=== PATIENT | male | born 1995 | race Caucasian/White ===

== ENCOUNTER 2017-01-12 11:28 | Emergency (ER) | payer OTHER ==
--- NOTE | 2017-01-12 12:28 | ED Physician Documentation ---
PD HPI LOWER EXT INJURY - Stated complaint Stated Complaint: BACK PX - Chief complaint Chief Complaint: Back Pain - History obtained from History obtained from: Patient - History of Present Illness Type of injury: Twist PD PAST MEDICAL HISTORY - Past Medical History Cardiovascular: Other Psych: ADD/ADHD - Past Surgical History Past Surgical History: Yes Ortho: Other HEENT: Tonsil/Adenoidectomy - Present Medications Home Medications: Ambulatory Orders Medication Instructions Recorded Confirmed Lisdexamfetamine Dimesylate 60 mg PO DAILY 05/15/16 01/12/17 [Vyvanse] - Allergies Allergies/Adverse Reactions: Allergies Allergy/AdvReac Type Severity Reaction Status Date / Time No Known Drug Allergies Allergy Verified 01/12/17 11:37 - Social History Does the pt smoke?: No Smoking Status: Never smoker Does the pt drink ETOH?: No Does the pt have substance abuse?: No - Immunizations Immunizations are current?: Yes - POLST Patient has POLST: No Results - Vitals Vitals: Vital Signs - 24 hr 01/12/17 11:36 Temperature 36.6 C Heart Rate 54 L Respiratory 14 Rate Blood Pressure 135/75 H O2 Saturation 100 Oxygen O2 Source Room air
--- NOTE | 2017-01-12 12:38 | ED Physician Documentation ---
PD HPI BACK INJURY - Stated complaint Stated Complaint: BACK PX - History obtained from History obtained from: Patient - History of Present Illness Location: Lower Type of injury: Twist Where injury occurred: [place] Timing - onset: Yesterday Timing - duration: Days (1) Timing - details: Gradual onset Pain level max: 8 Pain level now: 7 Quality: Pain, Spasm Improved by: Rest Worsened by: Moving, Palpating Associated symptoms: No: Fever, Weakness, Numbness, Incontinent of urine, Unable to urinate, Hematuria, Incontinent of stool Contributing factors: No: Anticoagulated, Prior back surgery - Additional information Additional information: No IVDU. No back problems in the past. Review of Systems Constitutional: denies: Fever, Chills GI: denies: Vomiting Neurologic: denies: Focal weakness, Numbness, Headache PD PAST MEDICAL HISTORY - Past Medical History Past Medical History: Yes Cardiovascular: Other Psych: ADD/ADHD - Past Surgical History Past Surgical History: Yes Ortho: Other HEENT: Tonsil/Adenoidectomy - Present Medications Home Medications: Ambulatory Orders Medication Instructions Recorded Confirmed Lisdexamfetamine Dimesylate 60 mg PO DAILY 05/15/01/12/17 [Vyvanse] Cyclobenzaprine [Flexeril] 10 mg PO TID PRN #20 tablet 01/12/17 Ibuprofen [Motrin] 800 mg PO Q8H PRN #30 tablet 01/12/17 - Allergies Allergies/Adverse Reactions: Allergies Allergy/AdvReac Type Severity Reaction Status Date / Time No Known Drug Allergies Allergy Verified 01/12/17 11:37 - Living Situation Living Arrangement: reports: At home - Social History Does the pt smoke?: No Smoking Status: Never smoker Does the pt drink ETOH?: No Does the pt have substance abuse?: Yes Substance Use and Type: Marijuana - Family History Family history: reports: Non contributory - Immunizations Immunizations are current?: Yes - POLST Patient has POLST: No PD ED PE NORMAL - Vitals Vital signs reviewed: Yes - General General: Alert and oriented X 3, No acute distress, Well developed/nourished - HEENT HEENT: PERRL, Moist mucous membranes - Neck Neck: Supple, no meningeal sign, No bony TTP - Cardiac Cardiac: RRR, No murmur - Respiratory Respiratory: Clear bilaterally - Abdomen Abdomen: Normal bowel sounds, Soft, Non tender, Non distended - Back Back: No spinal TTP (no tenderness to palpation or percussion.), Other ( paraspinal tenderness B L4-5. +spasm. ) - Derm Derm: Warm and dry - Extremities Extremities: Normal ROM s pain, Other (normal bilateral lower extremity patellar and ankle jerk reflexes. Normal great toe extension bilaterally) - Neuro Neuro: Alert and oriented X 3, No motor deficit, No sensory deficit - Psych Psych: Normal mood, Normal affect Results - Vitals Vitals: Vital Signs - 24 hr 01/12/17 01/12/17 11:36 13:17 Temperature 36.6 C 36.4 C L Heart Rate 54 L 52 L Respiratory 14 18 Rate Blood Pressure 135/75 H 122/80 O2 Saturation 100 100 Oxygen O2 Source Room air PD MEDICAL DECISION MAKING - ED course Complexity details: considered differential (no cauda equina, no spinal epidural abscess, no fracture, no aortic dissection or evidence of aneursym rupture), d/w patient, d/w family ED course: Patient is a 21-year-old male who presents to the emergency department With low back pain after twisting yesterday. Appears to have muscle spasm. No evidence of fracture, cauda equina, epidural abscess. No neurological deficits. No sciatica. Given Toradol and Flexeril here. Will place on Motrin and Flexeril for home. Patient counseled regarding signs and symptoms for which I believe and urgent re-evaluation would be necessary. Patient with good understanding of and agreement to plan and is comfortable going home at this time This document was made in part using voice recognition software. While efforts are made to proofread this document, sound alike and grammatical errors may occur. Departure - Departure Disposition: 01 Home, Self Care Clinical Impression: Back strain Qualifiers: Encounter type: initial encounter Qualified Code(s): S39.012A - Strain of muscle, fascia and tendon of lower back, initial encounter Condition: Good Instructions: ED Low Back Pain Injury Follow-Up: your,doctor in 1 week [Other] Prescriptions: Cyclobenzaprine [Flexeril] 10 mg PO TID PRN #20 tablet PRN Reason: Spasms Ibuprofen [Motrin] 800 mg PO Q8H PRN #30 tablet PRN Reason: PAIN &/OR FEVER Comments: Return if you worsen. This should improve over the next few days. Forms: Activity restrictions Discharge Date/Time: 01/12/17 13:17
[2017-01-12] MEDS ORDERED: CYCLOBENZAPRINE 10 MG TABLET PO STA (12:41)
[2017-01-12] MEDS ORDERED: KETOROLAC 60 MG/2 ML VIAL IM STA (12:41)
[2017-01-12] MEDS ORDERED: KETOROLAC 60 MG/2 ML VIAL ONE (12:49)
[2017-01-12] MEDS ORDERED: CYCLOBENZAPRINE 10 MG TABLET PO ONE (12:49)
[2017-01-12 13:17] VITALS: BP 122/80
== END 2017-01-12 13:17 | disposition home or self-care (01) ==
LOC: ED 11:28
DX: S39.012A Strain of muscle, fascia and tendon of lower back, initial encounter (principal); X50.0XXA Overexertion from strenuous movement or load, initial encounter
CPT/HCPCS: 96372; 99283; A9270

== ENCOUNTER 2017-11-19 15:51 | Emergency (ER) | payer OTHER ==
[2017-11-19 16:00] VITALS: BP 143/97
--- NOTE | 2017-11-19 16:37 | XRAY Report ---
Procedure Date: 11/19/2017 Accession Number: [id number] / [id number] Procedure: XR - Foot 3 View LT CPT Code: FULL RESULT: EXAM: LEFT FOOT RADIOGRAPHY. EXAM DATE: 11/19/2017 04:16 PM. CLINICAL HISTORY: Status post foot surgery 09/18, rolled ankle, pain and swelling. COMPARISON: None. TECHNIQUE: 3 views. FINDINGS: 2 screws placed across the first tarsometatarsal joint for fusion. Bunionectomy at the medial aspect of the first metatarsal head. No acute bone findings are seen. Small bone island at the first distal phalanx. No evidence for acute fracture. No subluxation. Mild diffuse dorsal foot soft tissue swelling. IMPRESSION: 1. Mild diffuse dorsal foot soft tissue swelling. Postsurgical changes as above. No acute bone findings are seen. RADIA
--- NOTE | 2017-11-19 16:39 | XRAY Report ---
Procedure Date: 11/19/2017 Accession Number: [id number] / [id number] Procedure: XR - Ankle 3 View LT CPT Code: FULL RESULT: EXAM: LEFT ANKLE RADIOGRAPHY. EXAM DATE: 11/19/2017 04:16 PM. CLINICAL HISTORY: Rolled ankle, status post foot surgery 09/18. COMPARISON: None. TECHNIQUE: 3 views. FINDINGS: Ankle joint effusion. No subluxation. Postsurgical change with lucency seen at the distal tibia. Small lateral malleolus bone spur. No acute bone findings are seen. Mild diffuse ankle soft tissue swelling. IMPRESSION: Ankle joint effusion. Mild diffuse ankle soft tissue swelling. No acute bone findings are seen. See above. RADIA
--- NOTE | 2017-11-19 16:47 | ED Physician Documentation ---
PD HPI LOWER EXT INJURY - Stated complaint Stated Complaint: POST OP LT FOOT INJ - Chief complaint Chief Complaint: Ext Problem - History obtained from History obtained from: Patient - History of Present Illness PD HPI LOW EXT INJURY LOCATION: Left, Ankle, Foot Type of injury: Twist (inversion and had pain at foot and ankle. Had bunion surgery 2 months ago and was having regular activity at this point. He is concerned about disruption of the surgical area and screws as it hurts a lot.) Worsened by: Moving Associated symptoms: Swelling. No: Weakness, Numbness Recently seen: Surgery (bunionectomy and screws 2 months ago. Healed well and was at normal use.) Review of Systems Skin: denies: Abrasion (s), Laceration (s) Musculoskeletal: reports: Extremity pain PD PAST MEDICAL HISTORY - Past Medical History Cardiovascular: Other Psych: ADD/ADHD - Past Surgical History Past Surgical History: Yes Ortho: Other HEENT: Tonsil/Adenoidectomy - Present Medications Home Medications: Ambulatory Orders Medication Instructions Recorded Confirmed Desvenlafaxine Succinate [Pristiq 100 mg PO 11/19/17 ER] HYDROcod/ACETAM 5/325 [[place] 5/325] 1 tab PO Q6H PRN #15 tablet 11/19/17 Naproxen [Naprosyn] 500 mg PO BID #20 tablet 11/19/17 clonazePAM [Clonazepam] 0.5 mg PO 11/19/17 - Allergies Allergies/Adverse Reactions: Allergies Allergy/AdvReac Type Severity Reaction Status Date / Time No Known Drug Allergies Allergy Verified 11/19/17 16:00 - Social History Does the pt smoke?: No Smoking Status: Never smoker Does the pt drink ETOH?: No Does the pt have substance abuse?: Yes - Immunizations Immunizations are current?: Yes - POLST Patient has POLST: No PD ED PE NORMAL - Vitals Vital signs reviewed: Yes - General General: Alert and oriented X 3, No acute distress, Well developed/nourished - Derm Derm: Normal color, Warm and dry - Extremities Extremities: Other (left foot and ankle with some tendernss mid foot to lateral. Helaed scars without signs of infection. Ankle with some tenderness ATFL area. No malleolar tenderness. ) - Neuro Neuro: No motor deficit, No sensory deficit Results - Vitals Vitals: Oxygen O2 Source Room air - Rads (name of study) left foot Radiology: Prelim report reviewed (post op changes and screws without apparent new injury. ) PD MEDICAL DECISION MAKING - ED course Complexity details: reviewed results (no signs of disruption of surgical changes ), considered differential, d/w patient - Sepsis Event Vital Signs: Oxygen O2 Source Room air Departure - Departure Disposition: 01 Home, Self Care Clinical Impression: History of foot operation Ankle sprain Qualifiers: Encounter type: initial encounter Involved ligament of ankle: unspecified ligament Laterality: left Qualified Code(s): S93.402A - Sprain of unspecified ligament of left ankle, initial encounter Foot sprain Qualifiers: Encounter type: initial encounter Laterality: left Qualified Code(s): S93.602A - Unspecified sprain of left foot, initial encounter Condition: Stable Record reviewed to determine appropriate education?: Yes Instructions: ED Sprain Ankle Prescriptions: HYDROcod/ACETAM 5/325 [[place] 5/325] 1 tab PO Q6H PRN #15 tablet PRN Reason: Pain Naproxen [Naprosyn] 500 mg PO BID #20 tablet Comments: The previous surgery does not appear disrupted. Presume a sprain of the foot and ankle. There may be some inflammation around the previous surgery area. Use your postop shoe and crutches that you had previously. Naproxen or ibuprofen 2-3 times daily. Activity as able. Add Tylenol or hydrocodone as needed for pain. Follow-up with your foot surgeon if not better over the next week. Discharge Date/Time: 11/19/17 17:24
== END 2017-11-19 17:24 | disposition home or self-care (01) ==
LOC: ED 15:51
DX: S93.402A Sprain of unspecified ligament of left ankle, initial encounter (principal); X50.1XXA Overexertion from prolonged static or awkward postures, initial encounter; Y93.9 Activity, unspecified; Y92.89 Other specified places as the place of occurrence of the external cause; Z98.890 Other specified postprocedural states
CPT/HCPCS: 99283

== ENCOUNTER 2018-10-27 14:01 | Emergency (ER) | payer OTHER ==
[2018-10-27 14:31] LABS: BASOPHILS # (AUTO) 0.1 10^3/uL (0.0-0.1); BASOPHILS % (AUTO) 0.8 %; EOSINOPHILS # (AUTO) 0.2 10^3/uL (0.0-0.7); EOSINOPHILS % (AUTO) 3.6 %; HGB - HEMOGLOBIN 15.6 g/dL (14.0-18.0); LYMPHOCYTES # (AUTO) 1.7 10^3/uL (1.5-3.5); LYMPHOCYTES % (AUTO) 25.9 %; MEAN CORPUSCULAR HEMOGLOBIN 30.2 pg (27.0-31.0); MEAN CORPUSCULAR HGB CONC 34.5 g/dL (32.0-36.0); MEAN CORPUSCULAR VOLUME 87.6 fL (80.0-94.0); MEAN PLATELET VOLUME 8.1 fL (7.4-11.4); MONOCYTES # (AUTO) 0.7 10^3/uL (0.0-1.0); MONOCYTES % (AUTO) 11.5 %; NEUTROPHILS # (AUTO) 3.7 10^3/uL (1.5-6.6); NEUTROPHILS % (AUTO) 58.2 %; PLT - PLATELET COUNT 260 10^3/uL (130-450); RED BLOOD COUNT 5.16 10^6/uL (4.70-6.10); RED CELL DISTRIBUTION WIDTH 12.6 % (12.0-15.0); WHITE BLOOD COUNT 6.4 x10^3/uL (4.8-10.8)
--- NOTE | 2018-10-27 14:46 | XRAY Report ---
Reason: Chest Pain Procedure Date: 10/27/2018 Accession Number: [id number] / [id number] Procedure: XR - Chest 1 View X-Ray CPT Code: 51055 FULL RESULT: EXAM: CHEST RADIOGRAPHY EXAM DATE: 10/27/2018 02:32 PM. CLINICAL HISTORY: Chest Pain. COMPARISON: CHEST 2 VIEW PA/LAT 05/16/2016 5:03 AM. TECHNIQUE: 1 view. FINDINGS: Lungs/Pleura: No focal opacities evident. No pleural effusion. No pneumothorax. Mediastinum: Within exam limitations, the cardiomediastinal contour is normal. Other: None. IMPRESSION: No acute cardiopulmonary abnormality. RADIA
[2018-10-27 14:47] LABS: ALBUMIN 4.2 g/dL (3.2-5.5); ALBUMIN/GLOBULIN RATIO 1.3 (1.0-2.2); BILIRUBIN,TOTAL 0.7 mg/dL (0.2-1.0); CALCIUM 9.2 mg/dL (8.5-10.3); TOTAL PROTEIN 7.4 g/dL (6.7-8.2)
--- NOTE | 2018-10-27 15:15 | ED Physician Documentation ---
PD HPI CHEST PAIN - Stated complaint Stated Complaint: CHEST PX - Chief complaint Chief Complaint: Cardiac - History obtained from History obtained from: Patient, Family - History of Present Illness Timing - onset: How many weeks ago (6) Timing - onset during: Light activity Timing - duration: Weeks (6) Timing - details: Gradual onset, Now resolved, Waxing and waning Quality: Throbbing Location: Substernal Improved by: Nothing Worsened by: Exertion Associated symptoms: Shortness of air. No: Diaphoresis, Nausea, Vomiting, Feeling faint / dizzy, General Weakness, Palpitations, Cough Similar symptoms before: Has not had sx before Recently seen: Not recently seen - Additional information Additional information: 23-year-old male is complaining of some pain in his anterior chest when he lays down at night to get ready to go to sleep. He states he is feeling he is having a palpitation in the anterior chest with some discomfort. He also indicates that he has been having some increased shortness of breath with exertion at work. 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 He is working in [place] and living here on [address]. He does travel periodically he has flown to [place] and drove back. He feels he is under undue stress at work and he is getting a new job in [facility].He is vague about his symptomatology. Review of Systems Constitutional: denies: Fever Eyes: denies: Decreased vision Ears: denies: Ear pain Nose: denies: Rhinorrhea / runny nose, Congestion Throat: denies: Sore throat Cardiac: reports: Chest pain / pressure, Palpitations. denies: Pedal edema, Calf pain Respiratory: reports: Dyspnea. denies: Cough, Hemoptysis, Wheezing GI: denies: Nausea, Vomiting : denies: Dysuria PD PAST MEDICAL HISTORY - Past Medical History Past Medical History: Yes Cardiovascular: Other Psych: ADD/ADHD - Past Surgical History Past Surgical History: Yes Ortho: Other HEENT: Tonsil/Adenoidectomy - Present Medications Home Medications: Ambulatory Orders Medication Instructions Recorded Confirmed Desvenlafaxine Succinate [Pristiq 100 mg PO 11/19/17 ER] HYDROcod/ACETAM 5/325 [[place] 5/325] 1 tab PO Q6H PRN #15 tablet 06/19/18 Naproxen [Naprosyn] 500 mg PO BID #20 tablet 11/19/17 clonazePAM [Clonazepam] 0.5 mg PO 11/19/17 - Allergies Allergies/Adverse Reactions: Allergies Allergy/AdvReac Type Severity Reaction Status Date / Time No Known Drug Allergies Allergy Verified 10/27/18 14:11 - Social History Does the pt smoke?: No Smoking Status: Never smoker Does the pt drink ETOH?: No Does the pt have substance abuse?: Yes - Immunizations Immunizations are current?: Yes - POLST Patient has POLST: No PD ED PE NORMAL - Vitals Vital signs reviewed: Yes (normal) - General General: Alert and oriented X 3, No acute distress, Well developed/nourished - HEENT HEENT: Atraumatic, PERRL, EOMI, Ears normal, Moist mucous membranes, Pharynx benign, Dentition benign - Neck Neck: Supple, no meningeal sign, No bony TTP - Cardiac Cardiac: RRR, No murmur - Respiratory Respiratory: No respiratory distress, Clear bilaterally - Abdomen Abdomen: Soft, Non tender - Back Back: No CVA TTP, No spinal TTP - Derm Derm: Normal color, Warm and dry, No rash - Extremities Extremities: No deformity, No edema - Neuro Neuro: Alert and oriented X 3, personnel analyst 2-12 intact, No motor deficit, No sensory deficit, Normal speech Eye Opening: Spontaneous Motor: Obeys Commands Verbal: Oriented GCS Score: 15 - Psych Psych: Normal mood, Other (affect is flat ) Results - Vitals Vitals: Vital Signs - 24 hr 10/27/18 10/27/18 14:09 16:37 Temperature 36.5 C Heart Rate 61 76 Respiratory 16 18 Rate Blood Pressure 126/78 150/78 H O2 Saturation 98 98 Oxygen O2 Source Room air - EKG (time done) 1412 Rate: Rate (enter#) (57) Rhythm: NSR Ischemia: Normal ST segments Compare to prior EKG: Unchanged from prior EKG (SPT 05-15-16 no changes ) Computer interpretation: Agree with computer - Labs Labs: Laboratory Tests 10/27/18 10/27/18 10/27/18 14:17 14:17 14:17 WBC 6.4 RBC 5.16 Hgb 15.6 Hct 45.2 MCV 87.6 MCH 30.2 MCHC 34.5 RDW 12.6 Plt Count 260 MPV 8.1 Neut # (Auto) 3.7 Lymph # (Auto) 1.7 Bartholomew # (Auto) 0.7 Eos # (Auto) 0.2 Baso # (Auto) 0.1 Absolute Nucleated RBC 0.00 Nucleated RBC % 0.0 D-Dimer Sodium 138 Potassium 4.4 Chloride 102 Carbon Dioxide 26 Anion Gap 10.0 BUN 14 Creatinine 1.0 Estimated GFR (MDRD) 93 Glucose 97 Calcium 9.2 Total Bilirubin 0.7 AST 44 H ALT 80 H Alkaline Phosphatase 66 Troponin I < 0.04 Total Protein 7.4 Albumin 4.2 Globulin 3.2 Albumin/Globulin Ratio 1.3 Lipase 24 10/27/18 14:47 WBC RBC Hgb Hct MCV MCH MCHC RDW Plt Count MPV Neut # (Auto) Lymph # (Auto) Bartholomew # (Auto) Eos # (Auto) Baso # (Auto) Absolute Nucleated RBC Nucleated RBC % D-Dimer 209.0 Sodium Potassium Chloride Carbon Dioxide Anion Gap BUN Creatinine Estimated GFR (MDRD) Glucose Calcium Total Bilirubin AST ALT Alkaline Phosphatase Troponin I Total Protein Albumin Globulin Albumin/Globulin Ratio Lipase - Rads (name of study) CXR Radiology: Prelim report reviewed (Impression: No acute cardiopulmonary abnormality.), EMP read indepedently, See rad report PD MEDICAL DECISION MAKING - ED course Complexity details: reviewed results, re-evaluated patient, considered differential, d/w patient, d/w family ED course: 23 y/o male with atypical chest pain and no findings on work up and no symptoms in the ED appears to have some stress. He does have ADHD Departure - Departure Disposition: 01 Home, Self Care Clinical Impression: Atypical chest pain, Stress and adjustment reaction Instructions: ED Stress React, ED Chest Pain Atypical Unkn Cause Follow-Up: [facility] [Provider Group] Forms: Activity restrictions Discharge Date/Time: 10/27/18 16:38
[2018-10-27 16:38] VITALS: BP 150/78
== END 2018-10-27 16:38 | disposition home or self-care (01) ==
LOC: ED 14:01
DX: R07.89 Other chest pain (principal); F43.9 Reaction to severe stress, unspecified; F43.20 Adjustment disorder, unspecified; F90.9 Attention-deficit hyperactivity disorder, unspecified type
CPT/HCPCS: 36415; 71045; 80053; 83690; 84484; 85025; 85379; 93005; 99283